=== PATIENT | female | born 1995 ===

== ENCOUNTER 2023-11-18 14:20 | Inpatient (IN) | payer OTHER, SELFPAY ==
[2023-11-18 15:00] VITALS: BP 131/83; PULSE 88; RESP 16; TEMP 36.6; O2SAT 100; BMI 30.7
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
[2023-11-18 20:00] VITALS: BP 120/61; PULSE 71; RESP 16; TEMP 36.4; O2SAT 100
[2023-11-19 07:00] VITALS: BMI 30.6
[2023-11-19 08:54] LABS: Estimated Average Glucose 100 mg/dL; Hemoglobin A1C 113.0003 umol/L; Hemoglobin A1c % 5.1 % (<6.0); Total Hemoglobin (HGBA1C) 3473.0522 umol/L
[2023-11-19 09:06] VITALS: BP 120/58; PULSE 82; RESP 16; TEMP 36.4; O2SAT 99
[2023-11-19 09:09] LABS: Alanine Aminotransferase 15 U/L (0-31); Albumin Level 4.4 g/dL (3.5-5.0); Alkaline Phosphatase 50 U/L (39-117); Anion Gap 13 (12-20); Aspartate Amino Transferase 17 U/L (5-31); Bilirubin Total 0.5 mg/dL (0.0-1.0); Blood Urea Nitrogen 8 mg/dL (9-16); Calcium 9.3 mg/dL (8.4-10.2); Carbon Dioxide 25 mmol/L (22-29); Chloride 109 mmol/L (96-108); Cholesterol 145 mg/dL (<200); Creatinine Clr Calc Pharmacy 107.9; Estimated Glomerular Filt Rate > 60; Glucose Fasting 93 mg/dL (60-99); HDL Cholesterol 57 mg/dL (>40); LDL Cholesterol Calculated 75 mg/dL (<100); Potassium 3.6 mmol/L (3.3-5.1); Sodium 143 mmol/L (135-145); Total Protein 7.3 g/dL (6.5-8.0); Triglycerides 69 mg/dL (<150)
--- NOTE | 2023-11-19 09:09 | HO.PM.IMCN ---
History of Present Illness Data of Consult Service Date: 11/19/23 Requesting physician: Enrique Rodriguez Primary Care Provider: Unknown Physician HPI Reason for consult: medical consult 28 yo f with PTSD and a hx of post depression admitted to adult [facility] for depression/SI. reports no medical history. c/o chronic low back pain, worse around menses and itchy scaling feet. naproxen helps with low back pain but only took for 2 days prior to admission. has had outpt workup for this that pt reports all negative. has not tried anything for the itchy feet but it happens every summer/fall and is bothersome. Review of Systems Constitutional: Constitutional: Denies fatigue, Denies fever(s) and Denies weakness Eyes: Eyes: Denies change in vision ENT: Denies dizziness and Denies nasal congestion Cardiovascular: Cardiovascular: Denies chest pain and Denies dyspnea Respiratory: Respiratory: Denies cough and Denies dyspnea Gastrointestinal: Gastrointestinal: Denies abdominal pain, Denies constipation and Denies diarrhea Genitourinary: Genitourinary: Denies dysuria Musculoskeletal: Musculoskeletal: Reports back pain (chronic LBP around menses) Integumentary/Breasts: Skin/Breast: Reports sores (on bottom lip, new yesterday, cold sore) Neurologic: Denies confusion, Denies dizziness and Denies weakness Psychiatric: Psychiatric: Denies confusion Endocrine: Endocrine: Denies fatigue Hematologic/Lymphatic: Hematologic/Lymphatic: Denies easy bleeding and Denies easy bruising Allergic/Immunologic: Allergic/Immunologic: Denies seasonal rhinorrhea PMFSH Functional capacity: independent ambulation Social History Household Members: Family Housing: Apartment Do you presently have visiting nurse or other home services: No Patient Tobacco Use Status: Former Tobacco user Smoked in Last 30 Days: No e-Cigarette/Vaping Use: Never Used Patient Interested in Nicotine Replacement: No Patient Given Instructions on How to Stop Smoking: No Second Hand Smoke Exposure: No Use of substances other than those prescribed or required for medical reasons: Yes Substance Use Type: Marijuana Substance Use Frequency: Chronic Longstanding Last Used Substance: Days (ago) Currently Displaying Signs/Symptoms of Drug Intoxication Withdrawal: No Any prior treatment program specific to substance use: No Spiritual Healthcare Practices: none Advance Directives: No Advance Directives Information Provided: No Do you have thoughts of harming others: None Do you have a plan to hurt others: No Plan Recently lost weight without trying: No How much weight loss: Not applicable Eating poorly because of decreased appetite: No Nutrition screen score: 0 Nutrition Risks: No Nutritional Risk Patient : No : No Poor oral hygiene: No Meds Allergies Allergy/AdvReac Type Severity Reaction Status Date / Time No Known Allergies Allergy Verified 11/18/23 15:53 Active Medications: Current Medications Acetaminophen (Acetaminophen 325 Mg Tablet) 650 mg PO Q6H PRN PRN Reason: Headache/Pain Mild Scale (1-3) Al Hydroxide/Mg Hydroxide (Magnesium Hydrox/Alum Hydrox 30 Ml Oral.Susp) 30 ml PO Q6H PRN PRN Reason: Heartburn/Nausea Clonidine HCl (Clonidine Hcl 0.1 Mg Tablet) 0.1 mg PO Q4H PRN; Protocol PRN Reason: anxiety Cyclobenzaprine HCl (Cyclobenzaprine Hcl 10 Mg Tablet) 10 mg PO TID PRN PRN Reason: muscle spasm Docosanol (Docosanol 10 % Cream 2 Gm Tube) 1 appl TOPICAL 5XD [facility]MAL; Protocol Hydroxyzine HCl (Hydroxyzine Hcl 25 Mg Tablet) 25 mg PO Q6H PRN PRN Reason: Anxiety Lidocaine (Lidocaine 4 % Patch Adh..Patch) 1 patch TRANSDERMA BEDTIME [facility]; Protocol Last Admin: 11/19/23 02:43 Dose: Not Given Magnesium Hydroxide (Milk Of Magnesia 30 Ml Oral.Susp) 30 ml PO DAILY PRN PRN Reason: Constipation Nicotine Polacrilex (Nicotine Polacrilex 2 Mg Gum) 4 mg BUCCAL Q2H PRN PRN Reason: Nicotine Cravings Olanzapine (Olanzapine 5 Mg Tablet) 5 mg PO TID PRN PRN Reason: agitation Trazodone HCl (Trazodone Hcl 50 Mg Tablet) 50 mg PO BEDTIME MRX1 PRN PRN Reason: Insomnia Home Medications ?Medication ?Instructions ?Recorded ?Confirmed ?Last Taken ?Type No Known Home Meds 11/18/23 11/18/23 Unknown History Physical Exam Vital Signs and Narrative: Vital Signs: Last Vital Signs Temp 97.6 F 11/19/23 09:06 Pulse 82 11/19/23 09:06 Resp 16 11/19/23 09:06 BP 120/58 L 11/19/23 09:06 Pulse Ox 99 11/19/23 09:06 O2 Del Method Room Air 11/19/23 09:06 BMI result Body Mass Index 30.7 Constitutional: Alert, in no acute distress. Mental Status: Oriented to person, place and time. Eyes: Pupils are equal, round, and reactive to light. Ear, Nose, and Throat: Oropharynx clear, mucous membranes moist. Ears and nose without deformities. Trachea midline. Respiratory: Clear to auscultation bilaterally. No wheezing, rales, or rhonchi. Cardiovascular: S1, S2 regular. No murmurs, rubs, or gallops. Gastrointestinal: Abdomen soft, non-tender, non-distended. Normal bowel sounds. Neurologic: Cranial nerves II-XII are grossly intact bilaterally. No focal neurological deficits. Moves all extremities spontaneously. Skin: Warm, dry. white scaling on feet and between toes. Musculoskeletal: No cyanosis or clubbing. Extremities: No edema. Psychiatric: Normal mood and affect. Const: General: No confusion Orientation/consciousness: No confusion Neuro: General: No confusion Results Labs 11/19/23 08:16 Labs: Laboratory Results - last 24 hr 11/19/23 08:16 Estimat Average Glucose 100 Hemoglobin A1c % 5.1 Assessment and Plan (1) Routine medical exam: Status: Acute (2) Chronic low back pain: Status: Acute (3) Tinea pedis: Status: Acute Plan 28 yo f with PTSD and a hx of post depression and chronic low back pain, admitted to adult psych for depression/SI. mood disorder/depression/SI - plan per psych chronic low back pain - continue lidocaine patch PRN - add naproxen PRN tinea pedis - add clotrimazole cream BID thank you for allowing me to participate in the pt's medical care. please contact the hospital service with any questions or concerns.
[2023-11-19 09:27] LABS: TSH reflex Free T4 0.86 uIU/mL (0.32-4.0)
[2023-11-19] MEDS: Clotrimazole 1 % Cream 15 GM TUBE 1 APPL TOPICAL (12:59)
[2023-11-19] MEDS: docosanoL 10 % Cream 2 GM TUBE 1 APPL TOPICAL ×2 (12:59→21:26)
--- NOTE | 2023-11-19 15:37 | HO.PSYADMNOT ---
HPI Date of Service: 11/19/23 Chief Complaint: decompensation Sources of Information: patient interviewed, chart reviewed and crisis/core team assessment reviewed HPI Subjective Notes: Perez Warning, Conditional Voluntary and 3 Day Narrative: Patient is a 28-year-old female with history of depression, and PTSD, who presented to [facility] via EMS due to suicidal ideation secondary to increased life stressors and argument with parents. Per crisis report, patient expressed her parents actions make her want to slit her throat. She also told her parents that while she was in detention, she thought how to kill them. Patient reports she did not do anything that her family accused her of doing. Patient's mother has temporary custody of her daughter after a 51A was filed after she was arrested on 11/13/23. She was also arrested on 10/25/23 and 10/27/23 due to assault and battery. Patient reported an argument occurred between her and her parents which resulted in the police being called. Patient did report that she barricaded herself in her room and stated she might as well slit herself if her parents continued to make accusations about her. Patient denied SI/HI/VH/AH. Patient has an appointment with [facility] outpatient services on 12/01/2023. She reports she is currently out on 3 bails and has a total of 15 pending charges.. She reports having a court hearing on 12/16/2023. Patient denied history of inpatient psychiatric hospitalizations. She reports a respite stay in [place] last year. Denies history of SA/SIB. Patient reports smoking marijuana, however, denies any other substance use. Utox positive for marijuana. Patient denies currently being on any psychiatric medications. Per crisis report, patient has had multiple inpatient psychiatric hospitalizations in [place]; last being October of 2022. During admission assessment, patient presents alert and oriented x3. Calm and cooperative. Patient reports feeling depressed. Patient stated, October has been a horrible month. I have been accused of assault and battery against my father and been arrested 3 different times. I do not want to kill them. I made the statement out of frustration . Patient denies suicidal ideation. Patient stated, if I was going to kill myself I would have done it before I had my daughter. I would not do that to her and leave her alone in the world . Patient reports that she is not interested in taking medications at this time. Patient stated, I have tried taking an SSRI when I was at respite but it did not help. I smoke marijuana, I pray and I would rather deal with the situation then take a medication that masks my feelings . Patient denies history of inpatient psychiatric hospitalizations. She reports staying at respite in [place] last year for 5 days. Patient reports having an intake with [facility] on 12/01/2023. denies issues with sleep or appetite. denies history of SA/SIB. Patient reports marijuana use daily; denies any other substance use. Patient reports that she is open to attending therapy and will consider starting on an SSRI. Risks/benefits reviewed of Zoloft. Past Psychiatric History: Patient has an intake with [facility] on 12/01/2023. Patient reports this is her 1st inpatient psychiatric admission. History of of staying at respite in [place] last year for 5 days. Denies current outpatient psychiatric providers. Denies current psychiatric medications. History of taking Lexapro for 1 month. Medical Evaluation Reviewed: [facility] Family History: Denies Social History: Homeless, but . 2-year-old daughter. Unemployed. Completed some college. Substance History: Smokes marijuana daily. Denies any other substance use. Trauma History: Yes Diagnostics Vital Signs (24Hr): Vital Signs - 24 hr 11/18/23 20:00 11/19/23 09:06 Temperature 97.6 F 97.6 F Pulse Rate 71 82 Respiratory Rate 16 16 Blood Pressure 120/61 120/58 L Pulse Oximetry 100 99 Oxygen Delivery Method Room Air Room Air BMI result Body Mass Index 30.7 Labs 11/19/23 08:16 Labs: Laboratory Results - last 48 hr 11/19/23 08:16 Sodium 143 Potassium 3.6 Chloride 109 H Carbon Dioxide 25 Anion Gap 13 BUN 8 L Creatinine 0.80 Estim Creat Clear Calc 107.9 Estimated GFR > 60 Fasting Glucose 93 Estimat Average Glucose 100 Hemoglobin A1c % 5.1 Calcium 9.3 Total Bilirubin 0.5 AST 17 ALT 15 Alkaline Phosphatase 50 Total Protein 7.3 Albumin 4.4 Triglycerides 69 Cholesterol 145 LDL Cholesterol, Calc 75 HDL Cholesterol 57 TSH 0.86 Meds/Allergies Meds Home Medications ?Medication ?Instructions ?Recorded ?Confirmed ?Type No Known Home Meds 10/02/24 10/02/24 History Allergies Allergies Allergy/AdvReac Type Severity Reaction Status Date / Time No Known Allergies Allergy Verified 11/18/23 15:53 Mental Status Exam Mental Status Exam Narrative: Pt is alert and oriented; behavior is cooperative and calm; dressed in casual attire; mood is described as depressed ; eye contact appropriate; Speech is normal rate, volume and not pressured; thought process is organized and goal directed; Thought content is on tx; otherwise pertinent to relevant topics and without any delusional content, paranoid ideations or grandiosity; denies SI/HI/VH/AH. Assessment & Plan Assessment & Plan (1) MDD (major depressive disorder), recurrent episode: Status: Acute Code(s): F33.9 - Major depressive disorder, recurrent, unspecified (2) PTSD (post-traumatic stress disorder): Status: Acute Code(s): F43.10 - Post-traumatic stress disorder, unspecified Plan Patient is a 28-year-old female with history of depression, and PTSD, who presented to [facility] via EMS due to suicidal ideation secondary to increased life stressors and argument with parents. Plan: /3 day notice 15 minute safety checks Start: Zoloft 25mg PO daily Obtain collateral Encourage groups Discharge planning Patient educated on: diagnosis, medication risk/benefits and therapeutic strategies Informed Consent: understands Reason for continued inpatient stay Substantial Risk for: med/psych decompensation Statement Statement: I have reviewed the history and physical and performed a pertinent examination on my patient. No changes have occurred unless specified. If the History and Physical was not performed prior to admission, the Hospitalist's service will be consulted for completing the admission physical. Time Spent With Patient Time: Total time managing care of this patient today _60___ minutes.
[2023-11-19 20:00] VITALS: BP 128/81; PULSE 75; RESP 16; TEMP 36.5; O2SAT 96
[2023-11-20 08:00] VITALS: BP 114/55; PULSE 72; RESP 16; TEMP 36.4; O2SAT 100
--- NOTE | 2023-11-20 08:43 | HO.PSYCHPN ---
Subjective Subjective Date of Service: 11/20/23 Reason For Visit: decompensation Subjective Notes: 3 Day Interim History: Reviewed with Dr. Gaston. Tearful during 1:1. Pt stated, it's a lot being here. I miss my daughter . Pt gave consent for staff to speak with her parents to obtain collateral. she denies SI/HI/VH/AH. 3 day up on Thursday. Medication Compliance: Yes Side effects from medications: No Attending Groups: Yes Review of Systems Constitutional: Reports as per HPI Eyes: Reports as per HPI Reports as per HPI Cardiovascular: Reports as per HPI Respiratory: Reports as per HPI Gastrointestinal: Reports as per HPI Musculoskeletal: Reports as per HPI Skin/Breast: Reports as per HPI Reports as per HPI Psychiatric: Reports as per HPI Endocrine: Reports as per HPI Hematologic/Lymphatic: Reports as per HPI Allergic/Immunologic: Reports as per HPI Mental Status Exam Mental Status Exam Narrative: Pt is alert and oriented; behavior is cooperative and calm; dressed in casual attire; mood is described as depressed ; eye contact appropriate; Speech is normal rate, volume and not pressured; thought process is organized and goal directed; Thought content is on tx; otherwise pertinent to relevant topics and without any delusional content, paranoid ideations or grandiosity; denies SI/HI/VH/AH. Diagnostics Vital Signs (24Hr): Vital Signs - 24 hr 11/19/23 09:06 11/19/23 20:00 Temperature 97.6 F 97.7 F Pulse Rate 82 75 Respiratory Rate 16 16 Blood Pressure 120/58 L 128/81 Pulse Oximetry 99 96 Oxygen Delivery Method Room Air Room Air BMI result Body Mass Index 30.6 Labs 11/19/23 08:16 Labs: Laboratory Results - last 48 hr 11/19/23 08:16 Sodium 143 Potassium 3.6 Chloride 109 H Carbon Dioxide 25 Anion Gap 13 BUN 8 L Creatinine 0.80 Estim Creat Clear Calc 107.9 Estimated GFR > 60 Fasting Glucose 93 Estimat Average Glucose 100 Hemoglobin A1c % 5.1 Calcium 9.3 Total Bilirubin 0.5 AST 17 ALT 15 Alkaline Phosphatase 50 Total Protein 7.3 Albumin 4.4 Triglycerides 69 Cholesterol 145 LDL Cholesterol, Calc 75 HDL Cholesterol 57 TSH 0.86 Medications Medications Current Medications Acetaminophen (Acetaminophen 325 Mg Tablet) 650 mg PO Q6H PRN PRN Reason: Headache/Pain Mild Scale (1-3) Al Hydroxide/Mg Hydroxide (Magnesium Hydrox/Alum Hydrox 30 Ml Oral.Susp) 30 ml PO Q6H PRN PRN Reason: Heartburn/Nausea Clonidine HCl (Clonidine Hcl 0.1 Mg Tablet) 0.1 mg PO Q4H PRN; Protocol PRN Reason: anxiety Clotrimazole (Clotrimazole 1 % Cream 15 Gm Tube) 1 appl TOPICAL BID NIRMAL; Protocol Last Admin: 11/19/23 21:29 Dose: Not Given Cyclobenzaprine HCl (Cyclobenzaprine Hcl 10 Mg Tablet) 10 mg PO TID PRN PRN Reason: muscle spasm Docosanol (Docosanol 10 % Cream 2 Gm Tube) 1 appl TOPICAL 5XD [facility]; Protocol Last Admin: 11/20/23 06:49 Dose: Not Given Hydroxyzine HCl (Hydroxyzine Hcl 25 Mg Tablet) 25 mg PO Q6H PRN PRN Reason: Anxiety Lidocaine (Lidocaine 4 % Patch Adh..Patch) 1 patch TRANSDERMA BEDTIME [facility]; Protocol Last Admin: 11/19/23 21:29 Dose: Not Given Magnesium Hydroxide (Milk Of Magnesia 30 Ml Oral.Susp) 30 ml PO DAILY PRN PRN Reason: Constipation Naproxen (Naproxen 250 Mg Tablet) 250 mg PO BID PRN PRN Reason: Pain, Moderate(Pain Scale 4-6) Nicotine Polacrilex (Nicotine Polacrilex 2 Mg Gum) 4 mg BUCCAL Q2H PRN PRN Reason: Nicotine Cravings Olanzapine (Olanzapine 5 Mg Tablet) 5 mg PO TID PRN PRN Reason: agitation Sertraline HCl (Sertraline Hcl 25 Mg Tablet) 25 mg PO DAILY NIRMAL Trazodone HCl (Trazodone Hcl 50 Mg Tablet) 50 mg PO BEDTIME MRX1 PRN PRN Reason: Insomnia Allergies Allergies Allergy/AdvReac Type Severity Reaction Status Date / Time No Known Allergies Allergy Verified 11/18/23 15:53 Assessment & Plan Assessment & Plan (1) MDD (major depressive disorder), recurrent episode: Status: Acute Code(s): F33.9 - Major depressive disorder, recurrent, unspecified (2) PTSD (post-traumatic stress disorder): Status: Acute Code(s): F43.10 - Post-traumatic stress disorder, unspecified Plan Patient is a 28-year-old female with history of depression, and PTSD, who presented to [facility] via EMS due to suicidal ideation secondary to increased life stressors and argument with parents. Plan: CV/3 day notice 15 minute safety checks Start: Zoloft 25mg PO daily Obtain collateral Encourage groups Discharge planning 11/19: Tearful during 1:1. Pt stated, it's a lot being here. I miss my daughter . Pt gave consent for staff to speak with her parents to obtain collateral. she denies SI/HI/VH/AH. 3 day up on Thursday. Patient educated on: diagnosis and medication risk/benefits Reason for continued inpatient stay Substantial Risk for: med/psych decompensation Time Spent With Patient Time: Total time managing care of this patient today _20___ minutes.
[2023-11-20] MEDS: docosanoL 10 % Cream 2 GM TUBE 1 APPL TOPICAL ×4 (08:52→21:01)
[2023-11-20] MEDS: Sertraline HCL 25 MG TABLET PO (08:58)
[2023-11-20] MEDS: Clotrimazole 1 % Cream 15 GM TUBE 1 APPL TOPICAL ×2 (08:58→16:32)
[2023-11-20 20:00] VITALS: BP 116/61; PULSE 61; RESP 16; TEMP 36.4; O2SAT 99
[2023-11-21 08:00] VITALS: BP 110/57; PULSE 75; TEMP 36.9; O2SAT 96
[2023-11-21] MEDS: Sertraline HCL 25 MG TABLET PO (08:42)
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
[2023-11-21] MEDS: docosanoL 10 % Cream 2 GM TUBE 1 APPL TOPICAL ×4 (10:05→21:23)
[2023-11-21] MEDS: Clotrimazole 1 % Cream 15 GM TUBE 1 APPL TOPICAL ×2 (10:06→21:23)
[2023-11-21 10:59] VITALS: BP 136/77
[2023-11-21] MEDS: cloNIDine HCL 0.1 MG TABLET PO (10:59)
[2023-11-21 20:00] VITALS: BP 114/70; PULSE 77; TEMP 36.4; O2SAT 98
[2023-11-22] MEDS: Sertraline HCL 50 MG TABLET PO (08:36)
[2023-11-22] MEDS: docosanoL 10 % Cream 2 GM TUBE 1 APPL TOPICAL ×4 (08:37→21:15)
[2023-11-22] MEDS: Clotrimazole 1 % Cream 15 GM TUBE 1 APPL TOPICAL (08:37)
[2023-11-22 08:45] VITALS: BP 107/53; PULSE 63; RESP 18; TEMP 36.6; O2SAT 99
--- NOTE | 2023-11-22 10:09 | P.PNPSI_ITS ---
Subjective Subjective Date of Service: 11/22/23 Reason For Visit: decompensation Interim History: Met with patient; discussed with team Overall patient feeling better; still gets triggered on the phone dependent whom she talks to but redirect herself and has been finding PRNs helpful. Wants Zoloft titrated to 75 mg before she leave.. She really wants to discharge on Thursday as she needs still with DCF case that just opened up. Mental Status Exam Mental Status Exam Narrative: Pt is alert and oriented; behavior is cooperative and calm; dressed in hospital attire, the well groomed; mood is described as okt ; eye contact appropriate; Speech is normal rate, volume and not pressured; thought process is organized and goal directed; Thought content is on tx; otherwise pertinent to relevant topics and without any delusional content, paranoid ideations or grandiosity; denies SI/HI/VH/AH. Insight and judgment fair Diagnostics Vital Signs (24Hr): Vital Signs - 24 hr 11/21/23 10:59 11/21/23 20:00 11/22/23 08:45 Temperature 97.6 F 98 F Pulse Rate 77 63 Respiratory Rate 18 Blood Pressure 136/77 114/70 107/53 L Pulse Oximetry 98 99 Oxygen Delivery Method Room Air Room Air BMI result Body Mass Index 30.6 Labs 11/19/23 08:16 Medications Medications Current Medications Acetaminophen (Acetaminophen 325 Mg Tablet) 650 mg PO Q6H PRN PRN Reason: Headache/Pain Mild Scale (1-3) Al Hydroxide/Mg Hydroxide (Magnesium Hydrox/Alum Hydrox 30 Ml Oral.Susp) 30 ml PO Q6H PRN PRN Reason: Heartburn/Nausea Clonidine HCl (Clonidine Hcl 0.1 Mg Tablet) 0.1 mg PO Q4H PRN; Protocol PRN Reason: anxiety Last Admin: 11/21/23 10:59 Dose: 0.1 mg Clotrimazole (Clotrimazole 1 % Cream 15 Gm Tube) 1 appl TOPICAL BID NIRMAL; Protocol Last Admin: 11/22/23 08:37 Dose: 1 appl Cyclobenzaprine HCl (Cyclobenzaprine Hcl 10 Mg Tablet) 10 mg PO TID PRN PRN Reason: muscle spasm Docosanol (Docosanol 10 % Cream 2 Gm Tube) 1 appl TOPICAL 5XD NIRMAL; Protocol Last Admin: 11/22/23 08:37 Dose: 1 appl Hydroxyzine HCl (Hydroxyzine Hcl 25 Mg Tablet) 25 mg PO Q6H PRN PRN Reason: Anxiety Lidocaine (Lidocaine 4 % Patch Adh..Patch) 1 patch TRANSDERMA BEDTIME NIRMAL; Protocol Last Admin: 11/21/23 20:57 Dose: Not Given Magnesium Hydroxide (Milk Of Magnesia 30 Ml Oral.Susp) 30 ml PO DAILY PRN PRN Reason: Constipation Naproxen (Naproxen 250 Mg Tablet) 250 mg PO BID PRN PRN Reason: Pain, Moderate(Pain Scale 4-6) Nicotine Polacrilex (Nicotine Polacrilex 2 Mg Gum) 4 mg BUCCAL Q2H PRN PRN Reason: Nicotine Cravings Olanzapine (Olanzapine 5 Mg Tablet) 5 mg PO TID PRN PRN Reason: agitation Sertraline HCl (Sertraline Hcl 50 Mg Tablet) 50 mg PO DAILY [facility] Last Admin: 11/22/23 08:36 Dose: 50 mg Trazodone HCl (Trazodone Hcl 50 Mg Tablet) 50 mg PO BEDTIME MRX1 PRN PRN Reason: Insomnia Allergies Allergies Allergy/AdvReac Type Severity Reaction Status Date / Time No Known Allergies Allergy Verified 11/18/23 15:53 Assessment & Plan Assessment & Plan (1) MDD (major depressive disorder), recurrent episode: Status: Acute Code(s): F33.9 - Major depressive disorder, recurrent, unspecified (2) PTSD (post-traumatic stress disorder): Status: Acute Code(s): F43.10 - Post-traumatic stress disorder, unspecified Plan Patient is a 28-year-old female with history of depression, and PTSD, who presented to [facility] via EMS due to suicidal ideation secondary to increased life stressors and argument with parents. 11/19: Tearful during 1:1. Pt stated, it's a lot being here. I miss my daughter . Pt gave consent for staff to speak with her parents to obtain collateral. she denies SI/HI/VH/AH. 3 day up on Thursday. 11/20 pt very upset, emotional, worried about new report that DCF showed up at her mothers. Pleads for team to contact her Position Classification Manager, wanting something in writing (email) so there is a paper trail. Discussed hx of assaults which pt still denies other than minimal and has only been this past month and towards parents (who trigger me). Discussed meds and she agrees increase in Zoloft and to start trying Clonidine 11/21 Overall patient feeling better; still gets triggered on the phone dependent whom she talks to but redirect herself and has been finding PRNs helpful. Wants Zoloft titrated to 75 mg before she leave.. She really wants to discharge on Thursday as she needs still with DCF case that just opened up. Patient likes clonidine as a p.r.n. but also agrees with scheduling Plan: 3 day notice 15 minute safety checks Increase Zoloft to 75mg PO daily Scheduled clonidine 0.1 mg for 0900,1300 clonidine for anxiety Obtain collateral Encourage groups Discharge planning Patient educated on: diagnosis, medication risk/benefits and therapeutic strategies Informed Consent: understands Reason for continued inpatient stay Substantial Risk for: stable for discharge Time Spent With Patient Time: Total time managing care of this patient today ____ minutes.
[2023-11-22 10:36] VITALS: BP 130/62
[2023-11-22] MEDS: cloNIDine HCL 0.1 MG TABLET PO (10:36)
[2023-11-22 20:00] VITALS: BP 122/61; PULSE 67; RESP 16; TEMP 36.3; O2SAT 100
[2023-11-23 08:00] VITALS: BP 97/60; PULSE 66; RESP 16; TEMP 37.1; O2SAT 97
[2023-11-23] MEDS: Sertraline HCL 25 MG TABLET 75 MG PO (08:21)
[2023-11-23] MEDS: docosanoL 10 % Cream 2 GM TUBE 1 APPL TOPICAL (08:47)
--- NOTE | 2023-11-23 10:58 | P.DS_ITS ---
DS: Providers Provider Date of Service: 11/23/23 Date of admission: 11/18/23 14:20 Date of discharge: 11/23/23 Primary care physician: Unknown Physician Admitting clinician: Sammi Sales Attending physician on admission: Luis Gaston Consults: 11/18/23 16:15 Consult to Hospitalist Routine Comment: Consulting Provider: Hospitalist Reason For Exam: admission physical Attending physician on discharge: Luis Gaston Discharging clinician: Sammi Sales DS: Diagnosis Discharge Diagnosis (1) MDD (major depressive disorder), recurrent episode: Status: Acute (2) PTSD (post-traumatic stress disorder): Status: Acute DS: Medications Discharge Medications Home Medications: Previous Rx's ?Medication ?Instructions ?Recorded sertraline 25 mg tablet 75 mg (3 x 25 mg) PO DAILY 30 days 11/23/23 #90 tabs Mental Status Exam Mental Status Exam Narrative: Pt is alert and oriented; behavior is cooperative, friendly and calm; dressed in casual attire; mood is described as good ; eye contact appropriate; Speech is normal rate, volume and not pressured; thought process is organized; Thought content is on discharge; denies SI/HI/VH/AH. Data Data Completed and Pending Completed studies during hospitalization [Text1]: 11/19/23 08:16 Sodium 143 Potassium 3.6 Chloride 109 H Carbon Dioxide 25 Anion Gap 13 BUN 8 L Creatinine 0.80 Estim Creat Clear Calc 107.9 Estimated GFR > 60 Fasting Glucose 93 Estimat Average Glucose 100 Hemoglobin A1c % 5.1 Calcium 9.3 Total Bilirubin 0.5 AST 17 ALT 15 Alkaline Phosphatase 50 Total Protein 7.3 Albumin 4.4 Triglycerides 69 Cholesterol 145 LDL Cholesterol, Calc 75 HDL Cholesterol 57 TSH 0.86 DS: Summary Hospital Course Hospital Course: Patient is a 28-year-old female with history of depression, and PTSD, who presented to [facility] via EMS due to suicidal ideation secondary to increased life stressors and argument with parents. Per crisis report, patient expressed her parents actions make her want to slit her throat. She also told her parents that while she was in shelter, she thought how to kill them. Patient reports she did not do anything that her family accused her of doing. Patient's mother has temporary custody of her daughter after a 51A was filed after she was arrested on 11/13/23. She was also arrested on 10/25/23 and 10/27/23 due to assault and battery. Patient reported an argument occurred between her and her parents which resulted in the police being called. Patient did report that she barricaded herself in her room and stated she might as well slit herself if her parents continued to make accusations about her. Patient denied SI/HI/VH/AH. Patient has an appointment with [facility] on 12/01/2023. She reports she is currently out on 3 bails and has a total of 15 pending charges.. She reports having a court hearing on 12/16/2023. Patient denied history of inpatient psychiatric hospitalizations. She reports a respite stay in [place] last year. Denies history of SA/SIB. Patient reports smoking marijuana, however, denies any other substance use. Utox positive for marijuana. Patient denies currently being on any psychiatric medications. Per crisis report, patient has had multiple inpatient psychiatric hospitalizations in [place]; last being October of 2022. During admission assessment, patient presents alert and oriented x3. Calm and cooperative. Patient reports feeling depressed. Patient stated, October has been a horrible month. I have been accused of assault and battery against my father and been arrested 3 different times. I do not want to kill them. I made the statement out of frustration . Patient denies suicidal ideation. Patient stated, if I was going to kill myself I would have done it before I had my daughter. I would not do that to her and leave her alone in the world . Patient reports that she is not interested in taking medications at this time. Patient stated, I have tried taking an SSRI when I was at respite but it did not help. I smoke marijuana, I pray and I would rather deal with the situation then take a medication that masks my feelings . Patient denies history of inpatient psychiatric hospitalizations. She reports staying at respite in [place] last year for 5 days. Patient reports having an intake with [facility] on 12/01/2023. denies issues with sleep or appetite. denies history of SA/SIB. Patient reports marijuana use daily; denies any other substance use. Patient reports that she is open to attending therapy and will consider starting on an SSRI. Risks/benefits reviewed of Zoloft. Plan: CV/3 day notice 15 minute safety checks Start: Zoloft 25mg PO daily Obtain collateral Encourage groups Discharge planning Tearful during 1:1. Pt stated, it's a lot being here. I miss my daughter . Pt gave consent for staff to speak with her parents to obtain collateral. she denies SI/HI/VH/AH. 3 day up on Thursday. pt very upset, emotional, worried about new report that DCF showed up at her mothers. Pleads for team to contact her Union Organizer, wanting something in writing (email) so there is a paper trail. Discussed hx of assaults which pt still denies other than minimal and has only been this past month and towards parents (who trigger me). Discussed meds and she agrees increase in Zoloft and to start trying Clonidine Overall patient feeling better; still gets triggered on the phone dependent whom she talks to but redirect herself and has been finding PRNs helpful. Wants Zoloft titrated to 75 mg before she leave.. She really wants to discharge on Thursday as she needs still with DCF case that just opened up. Patient likes clonidine as a p.r.n. but also agrees with scheduling. Patient reports feeling good today; pt denies SI/HI/VH/AH. Pt reports she plans on following up with her outpatient providers. Time spent discussing smoking cessation with patient: 3 to 10 minutes Status at Discharge Cognitive/behavioral status at discharge: Patient was interviewed prior to discharge and found to be fully oriented. Patient has insight and demonstrates good judgment in terms of wanting to pursue treatment. Patient has a safety plan that includes presenting to the closest ER or calling 911 if feeling unsafe. Functional status at discharge: independent ambulation Overall status at discharge: patient is back to baseline Time Spent with Patient Time attestation: Total time managing care of this patient today _30___ minutes. Time spent: Less than 30 minutes Discharge Plan Discharge Anticipated Discharge Date/Time: 11/23/23 11:30 Patient Disposition: Home, Self-Care Discharge Diagnosis: MDD, PTSD Referrals: [facility] [Other] - 3-5 Days (Walk-in same day intake appointment for therapy and psychiatry. Bring your discharge packet with you. Hospital discharges will get priority. [place] Office Hours: 8am-8pm M-F 9am-5pm Sat.) [facility] [Other] - 3-5 Days (Walk-in same day intake appointment for therapy and psychiatry. Bring your discharge packet with you. Hospital discharges will get priority. Hours: 10am -12pm Thursday through Thursday) [facility] [Other] - 3-5 Days ( Case management can help make referrals to help you obtain penitentiary, permanent housing. ) [facility] [Other] - 3-5 Days ([facility] assists formerly incarcerated people in all aspects of their lives as they transition from incarceration into the community. Drop-in hours for registration: 8:30 a.m.-11:30 a.m., Thursday-Thursday) Physician,Unknown J [Primary Care Provider] - 1 Week (please make appointment w/ [place] [address] ) Discharge Medications: New sertraline 25 mg Tablet 75 mg PO DAILY 30 Days Qty: 90 0RF clonidine HCl 0.1 mg Tablet 0.1 mg PO DAILY 30 Days Qty: 30 0RF Protocol: Hold for SBP< HOLD for SBP < : 90 Discharge Orders: Discharge Order (Routine); Ordered 11/23/23 Ordered By: Sammi Sales Diet: Regular diet Activity on Discharge: As tolerated Stand Alone Forms: Patient Portal Discharge page, Community Support Print Language: Bhutanese Care Plan Goals: Maintain mood and safe behaviors Take medications as prescribed Practice coping skills Continue with outpatient providers and reach out to them as needed Health Concerns: Mood stability and behaviors Plan of Treatment: Follow up with your PCP, psychiatric provider and other outpatient providers regarding above concerns Take medications as prescribed Assessment: Patient was interviewed prior to discharge and found to be fully oriented. Patient has insight and demonstrates good judgment in terms of wanting to pursue treatment. Patient has a safety plan that includes presenting to the closest ER or calling 911 if feeling unsafe. Discharge Date/Time: 11/23/23 11:58
== END 2023-11-23 11:58 | disposition home or self-care (01) | DRG 751 ==
PROVIDERS: Admitting Provider Psychiatry & Neurology Psychiatry; Responsible Provider Registered Nurse; Visit Provider Psychiatry & Neurology Psychiatry
DX: F33.9 Major depressive disorder, recurrent, unspecified (principal); R45.851 Suicidal ideations; F43.10 Post-traumatic stress disorder, unspecified; M54.50 Low back pain, unspecified; G89.29 Other chronic pain; B35.3 Tinea pedis; Z87.891 Personal history of nicotine dependence; Z79.899 Other long term (current) drug therapy
CPT/HCPCS: 36415; 80053; 80061; 83036; 84443

== ENCOUNTER → 2023-11-18 14:20 | Outpatient (BNV) | payer OTHER, SELFPAY | PROVIDERS: Admitting Provider Psychiatry & Neurology Psychiatry; Responsible Provider Registered Nurse; Visit Provider Psychiatry & Neurology Psychiatry | DX: F33.2 Major depressive disorder, recurrent severe without psychotic features (principal); F43.11 Post-traumatic stress disorder, acute | CPT/HCPCS: 90792; 99231; 99232; 99238 ==

== ENCOUNTER → 2023-11-18 14:20 | Outpatient (BNV) | payer OTHER, SELFPAY | PROVIDERS: Admitting Provider Psychiatry & Neurology Psychiatry; Visit Provider Physician Assistant | DX: M54.50 Low back pain, unspecified (principal); G89.29 Other chronic pain; B35.3 Tinea pedis | CPT/HCPCS: 99222 ==